=== PATIENT | female | born 1990 | race Caucasian/White ===

== ENCOUNTER 2017-05-10 21:32 | Emergency (ER) | payer OTHER ==
[~2017-05-10] VITALS: Ht 167.6 cm; Wt 116.7 kg
[~2017-05-10 21:32] MED LIST: BACTRIM,SEPT1 TABLET PO; GLUCOPHAGE500 MG PO; HYCODAN SYRUP480 ML PO; MOTRIN800 MG PO; NAPROSYN500 MG PO; PREDNISONE50 MG PO; ZITHROMAX TRI-500 MG PO; ZITHROMAX500 MG PO
[2017-05-11] MEDS ORDERED: PREDNISONE20 MG PO (01:01)
[2017-05-11] MEDS ORDERED: VENTOLIN HFA18 GM IH (01:01)
[2017-05-11] MEDS ORDERED: TESSALON PERLE100 MG PO (01:08)
[2017-05-11 01:16] VITALS: BP 127/78
== END 2017-05-11 01:17 | disposition home or self-care (01) ==
LOC: EME 21:32
DX: R05 Cough (principal); F17.200 Nicotine dependence, unspecified, uncomplicated; Z88.0 Allergy status to penicillin
CPT/HCPCS: 71020; 99281; 99283; J7512